=== PATIENT | female | born 1965 | race Caucasian/White ===

== ENCOUNTER 2021-11-07 19:53 | Emergency (ER) | payer OTHER ==
[~2021-11-07] VITALS: Ht 162.6 cm; Wt 82.0 kg
[2021-11-07] MEDS ORDERED: MORPHINE SULFATE 4 MG/ML CPJ (NOT FOR IM USE) IV STA (20:39)
[2021-11-07 21:23] LABS: HCG SCREEN NEGATIVE
[2021-11-08] MEDS ORDERED: IBUP-2029 MT (01:56)
[2021-11-08] MEDS ORDERED: ACET-2708 MT (01:57)
[2021-11-08] MEDS ORDERED: IBUPROFEN 600MG TABLET PO ONE (02:15)
[2021-11-08] MEDS ORDERED: HYDROCODONE/ACETAMINOPHEN 5/325MG TABLET PO ONE (02:15)
[2021-11-08 02:33] VITALS: BP 128/77
[2021-11-08] MEDS ORDERED: IOHEXOL-300 100 ML BOTTLE ONE (06:25)
== END 2021-11-08 02:34 | disposition home or self-care (01) ==
LOC: ER 19:53
DX: R10.12 Left upper quadrant pain (principal)
CPT/HCPCS: 73562; 73610; 73630; 74177; 84703; 99285; Q9967

== ENCOUNTER 2023-10-26 15:28 | Emergency (ER) | payer MEDICAID ==
[~2023-10-26] VITALS: Ht 162.6 cm; Wt 91.0 kg
[~2023-10-26 15:28] MED LIST: ACET-2708 MT; IBUP-2029 MT
[2023-10-26 15:33] VITALS: O2SAT 96
[2023-10-26] MEDS: DEXAMETHASONE 10 MG/ML VIAL IM ONE (16:11)
[2023-10-26] MEDS: FAMOTIDINE 20MG TABLET PO ONE (16:12)
[2023-10-26] MEDS: DIPHENHYDRAMINE 25MG CAPSULE PO ONE (16:12)
[2023-10-26] MEDS ORDERED: DIPH25TA62 MT (16:13)
[2023-10-26 16:33] VITALS: BP 121/78; PULSE 79; RESP 18; TEMP 98.4
== END 2023-10-26 16:33 | disposition home or self-care (01) ==
LOC: ER 16:08
DX: T78.40XA Allergy, unspecified, initial encounter (principal); K14.0 Glossitis; X58.XXXA Exposure to other specified factors, initial encounter
CPT/HCPCS: 96372; 99283; Q0163; J1100; Z7610